=== PATIENT | female | born 1960 | race American Indian/Alaskan Native ===

== ENCOUNTER 2018-08-23 06:50 | Emergency (ER) | payer OTHER ==
[2018-08-23 09:33] VITALS: BMI 35.4
== END 2018-08-23 07:09 | disposition left against medical advice (07) ==
LOC: ED 06:50 → MERGE 06:50 → ED 07:09
DX: Z02.89 Encounter for other administrative examinations (principal)

== ENCOUNTER 2018-08-23 07:18 | Emergency (ER) | payer OTHER ==
[2018-08-23 07:25] VITALS: BMI 35.4
[2018-08-23 07:36] VITALS: BP 158/82; PULSE 70; RESP 18; TEMP 98.5; O2SAT 100
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
--- NOTE | 2018-08-23 08:28 | RAD ---
Date of service: 08/23/2018 PROCEDURE: Right Knee Radiographs. HISTORY: pain, injury COMPARISON: None. TECHNIQUE: Three views obtained. FINDINGS: BONES: Normal. No fracture. JOINTS: Normal. No osteoarthritis. JOINT EFFUSION: None. OTHER FINDINGS: None. IMPRESSION: Normal radiographs of the right knee.
--- NOTE | 2018-08-23 08:29 | RAD ---
Date of service: 08/23/2018 PROCEDURE: Radiographs of the right tibia and fibula. HISTORY: pain, injury, focus priximal fibula COMPARISON: None available TECHNIQUE: Frontal and lateral views obtained. 2 views obtained. FINDINGS: BONES: No fracture or destructive lesion. JOINT SPACES: Unremarkable. OTHER FINDINGS: None. IMPRESSION: Unremarkable radiographs of the right tibia and fibula.
== END 2018-08-23 08:41 | disposition home or self-care (01) ==
LOC: MERGE 07:18 → ED 07:18
DX: S83.91XA Sprain of unspecified site of right knee, initial encounter (principal); V89.2XXA Person injured in unspecified motor-vehicle accident, traffic, initial encounter; Y92.410 Unspecified street and highway as the place of occurrence of the external cause